=== PATIENT | male | born 1995 | race Caucasian/White ===

== ENCOUNTER 2018-03-17 18:33 | Emergency (ER) | payer OTHER ==
[~2018-03-17] VITALS: Ht 180.3 cm; Wt 83.9 kg
[~2018-03-17 18:33] MED LIST: ACETAMINOPHEN-120 ML PO; ALBUTEROL NEB; FLONASE 0.05%50 MCG NASAL; PREDNISONE 20 M20 M1 PO; PROAIR HFA8.5 GM IH; PROVENTIL HFA6.7 G1 INH; ZPAK PO
[2018-03-17] MEDS ORDERED: PENICILLIN V P500 MG PO (18:46)
[2018-03-17 19:09] LABS: HEMATOCRIT 40.5 % (42.0-52.0); HEMOGLOBIN 13.9 gm/dL (14.0-18.0); MCH 30.8 pg (26.0-34.0); MCHC 34.2 g/dL (28.0-37.0); NUCLEATED RBCS 0 /100WBC; PLATELET COUNT* 179 thou/uL (150-400); RDW-CV 12.5 % (10.5-14.5); WBC 14.5 thou/uL (4.0-11.0)
[2018-03-17 19:15] LABS: CALCIUM 8.6 mg/dL (8.5-10.1); POTASSIUM 3.5 mmol/L (3.5-5.1)
[2018-03-17 19:19] LABS: TOTAL BILIRUBIN 1.1 mg/dL (<0.1-1.0); TOTAL PROTEIN 7.8 g/dL (6.4-8.2)
[2018-03-17 19:38] LABS: ABSOLUTE LYMPHOCYTES 9.7 thou/uL (0.8-5.3); ABSOLUTE MONOCYTES 0.6 thou/uL (0.0-1.2); ABSOLUTE NEUTROPHILS 4.2 thou/uL (1.6-8.1)
[2018-03-17 19:39] LABS: ATYPICAL LYMPHS 53 %; PLATELET ESTIMATE ADEQUATE
[2018-03-17] MEDS ORDERED: PREDNISONE 10 M10 M1 PO (19:47)
[2018-03-17] MEDS ORDERED: KEFLEX500 M1 PO (19:47)
[2018-03-17 20:00] VITALS: BP 127/59
== END 2018-03-17 20:00 | disposition home or self-care (01) ==
LOC: M.ERS 18:33
PROVIDERS: Nurse Practitioner Family
DX: B27.90 Infectious mononucleosis, unspecified without complication (principal); J02.0 Streptococcal pharyngitis; J45.909 Unspecified asthma, uncomplicated